=== PATIENT | male | born 1955 | race Caucasian/White ===

== ENCOUNTER 2016-10-30 19:49 | Emergency (ER) | payer BC ==
[~2016-10-30] VITALS: Ht 180.3 cm; Wt 93.1 kg
[2016-10-30 19:55] VITALS: TEMP 36.7; Ht 180.3 cm; Wt 93.1 kg
[2016-10-30] MEDS ORDERED: KETOROLAC TROMETHAMINE 30 MG/ML VIAL IV STA (20:25)
[2016-10-30] MEDS ORDERED: LABE1TAB28 PO (20:53)
[2016-10-30] MEDS ORDERED: HYDR25TA4 PO (20:53)
[2016-10-30] MEDS ORDERED: CHLO0.1222 PO (20:53)
[2016-10-30] MEDS ORDERED: LOSA1TAB PO (20:53)
[2016-10-30 20:56] LABS: BASO % 0.2 %; BASO ABS # 0.02 K/uL (0-0.2); COMPLETE YES; EOS % 3.5 %; HEMATOCRIT 40.2 % (42-52); IG% 0.3 %; LYMPH % 29.6 %; MEAN CELL VOLUME 91.8 fL (80-100); MEAN CORPUSCULAR HGB CONC 34.8 g/dl (32-36); MEAN PLATELET VOLUME 9.8 fL (7.4-10.4); MONO % 9.3 %; NEUT % 57.1 %; PLATELET COUNT 228 K/uL (130-400); RED BLOOD COUNT 4.38 M/uL (4.7-6.1); WHITE BLOOD COUNT 11.14 K/uL (4.8-10.8)
--- NOTE | 2016-10-30 21:11 | DIAGNOSTIC IMAGING REPORT ---
RIGHT TOE(S) MIN 2 VIEWS CLINICAL HISTORY: Right great toe redness and swelling COMPARISON: None. DISCUSSION: 3 views are provided for interpretation. No fractures or dislocations are visualized. There are minor degenerative changes. There are no destructive lesions to indicate acute osteomyelitis. IMPRESSION: 1. No acute fractures 2. No conventional radiographic evidence of osteomyelitis Electronically signed by: Marty Cordoba M.D. 10/30/2016 9:09 PM Dictated Date/Time: 10/30/2016 9:08 PM
[2016-10-30 21:13] LABS: CALCIUM 9.1 mg/dl (8.5-10.1); POTASSIUM 3.6 mmol/L (3.5-5.1); URIC ACID 5.5 mg/dl (2.6-7.2)
[2016-10-30] MEDS ORDERED: CEFAZOLIN SOD 1000MG/55 ML D5W IV STA (21:45)
--- NOTE | 2016-10-30 21:58 | EMERGENCY ROOM VISIT NOTE ---
ED Visit Note First contact with patient: 20:12 CHIEF COMPLAINT: Infection of the right great toe HISTORY OF PRESENT ILLNESS: This 61-year-old male patient presents to the emergency department via personal vehicle with his complaining of right toe pain and swelling for the past 5 days. The area has become red, warm, and very painful. The patient denies fever, chills, nausea, or loss of appetite. He reports history of similar swelling and pain in his big toe in the past, but states it was the lower joint that got inflamed and painful, and only lasted a few days that went away. He states he thinks this was gout, but he has never had a formal evaluation or diagnosis of gout. The swelling and pain of his toe now is different from previous times. Movement of the right big toe is somewhat decreased because of the pain. The patient's tetanus shot is up to date. REVIEW OF SYSTEMS: A review of systems was performed with positives and pertinent negatives listed in the history of present illness. All other systems were reviewed and are negative. ALLERGIES: No known allergies MEDICATIONS: Reviewed in chart PMH: Hypertension SOCIAL HISTORY: Lives at home with his . Denies tobacco, alcohol, recreational drug use. PHYSICAL EXAM: Vital Signs: Reviewed Nurse's notes, afebrile, vital signs stable. GENERAL: Pleasant and cooperative, in no acute distress, is non toxic in appearance, well-developed, well-nourished. SKIN: The right great toe is red , warm, very tender, and swollen along the DIP joint and plantar aspect of the toe. There is no lymphangitic streaking. There is no discharge. There is no fluctuance. There is mild induration. There is increased pain with flexion and extension of the DIP joint. There is no evidence of ingrown or infected toenail. HEART: Regular rate and rhythm without murmur, gallop, or rub. LUNGS: Clear to auscultation bilaterally without wheezes, rales, or rhonchi. NEURO: Alert and oriented to person, place, and time. Normal sensation to light and sharp touch. Capillary reflex less than 2 seconds. Peripheral pulses 2 + bilaterally. EMERGENCY DEPARTMENT COURSE: I examined the patient. Differential diagnosis includes cellulitis, ingrown toenail, gouty arthritis, osteomyelitis. X-ray of the right great toe was done, reviewed by myself and radiologist, no evidence of fracture or acute osteomyelitis. Labs were done and show mild leukocytosis, normal renal function. Given the leukocytosis and concern for possible developing infection, patient was given IV Ancef and PO Bactrim here in the emergency department and will be discharged home on Keflex and Bactrim for 10 days. Patient has been persistently hypertensive during his emergency department stay, he denies any associated symptoms of headache, blurry vision, dizziness, chest pain, palpitations, shortness of breath, and does report that he has had persistently elevated blood pressures "for a while." Due to the significant hypertension, an EKG was performed which shows sinus bradycardia no acute ischemic changes, no significant changes found when compared to previous EKG from 07/02/2015. A urine dip was done which showed trace proteinuria. The patient was encouraged to follow closely with his PCP in the next few days, and was given return precautions should his symptoms get worse, he verbalized understanding of all discharge instructions and plan for follow-up. Patient was discharged home in stable condition and ambulatory. Medication Reconciliation: I attest that I have personally reviewed the patient' s current medication list. Blood pressure screening: The patient was found to have an elevated blood pressure and was referred to their primary doctor for recheck and further treatment. I discussed the patient with Dr. Gray, who agrees with my assessment and plan. Current/Historical Medications Scheduled Cephalexin Monohydrate (Keflex), 500 MG PO QID Chlorhexidine Gluconate (Mouth (Peridex), 1 DOSE PO DAILY Hydrochlorothiazide (Hctz), 25 MG PO DAILY Labetalol (Normodyne), 200 MG PO BID Losartan Potassium (Cozaar), 25 MG PO DAILY Sulfamethoxazole-Trimethoprim (Bactrim Ds 800MG/160MG), 1 TAB PO BID Allergies Coded Allergies: No Known Drug Allergy (Verified Allergy, Unknown, `, 07/02/15) Vital Signs Date Time Temp Pulse Resp B/P (MAP) Pulse Ox O2 Delivery O2 Flow Rate FiO2 10/30/16 22:51 163/99 10/30/16 22:02 60 18 186/109 97 Room Air 10/30/16 19:55 36.7 67 18 173/114 96 Room Air Laboratory Results 10/30/16 20:45 Red Blood Count 4.38, Mean Corpuscular Volume 91.8, Mean Corpuscular Hemoglobin 32.0, Mean Corpuscular Hemoglobin Concent 34.8, Mean Platelet Volume 9.8, Neutrophils (%) (Auto) 57.1, Lymphocytes (%) (Auto) 29.6, Monocytes (%) (Auto) 9.3, Eosinophils (%) (Auto) 3.5, Basophils (%) (Auto) 0.2, Neutrophils # (Auto) 6.36, Lymphocytes # (Auto) 3.30, Monocytes # (Auto) 1.04, Eosinophils # (Auto) 0.39, Basophils # (Auto) 0.02 10/30/16 20:45 Test 10/30/16 20:45 White Blood Count 11.14 K/uL (4.8-10.8) Red Blood Count 4.38 M/uL (4.7-6.1) Hemoglobin 14.0 g/dL (14.0-18.0) Hematocrit 40.2 % (42-52) Mean Corpuscular Volume 91.8 fL (80-100) Mean Corpuscular Hemoglobin 32.0 pg (25-34) Mean Corpuscular Hemoglobin Concent 34.8 g/dl (32-36) Platelet Count 228 K/uL (130-400) Mean Platelet Volume 9.8 fL (7.4-10.4) Neutrophils (%) (Auto) 57.1 % Lymphocytes (%) (Auto) 29.6 % Monocytes (%) (Auto) 9.3 % Eosinophils (%) (Auto) 3.5 % Basophils (%) (Auto) 0.2 % Neutrophils # (Auto) 6.36 K/uL (1.4-6.5) Lymphocytes # (Auto) 3.30 K/uL (1.2-3.4) Monocytes # (Auto) 1.04 K/uL (0.11-0.59) Eosinophils # (Auto) 0.39 K/uL (0-0.5) Basophils # (Auto) 0.02 K/uL (0-0.2) RDW Standard Deviation 41.3 fL (36.4-46.3) RDW Coefficient of Variation 12.3 % (11.5-14.5) Immature Granulocyte % (Auto) 0.3 % Immature Granulocyte # (Auto) 0.03 K/uL (0.00-0.02) Anion Gap 7.0 mmol/L (3-11) Est Creatinine Clear Calc Drug Dose 92.7 ml/min Estimated GFR () 95.1 Estimated GFR (Non- 82.0 BUN/Creatinine Ratio 20.0 (10-20) Uric Acid 5.5 mg/dl (2.6-7.2) Calcium Level 9.1 mg/dl (8.5-10.1) Medications Administered Medications (Trade) Dose Ordered Sig/Fadi Route Start Time Stop Time Status Last Admin Dose Admin Ketorolac Tromethamine (Toradol Inj) 15 mg NOW STAT IV 10/30/16 20:25 10/30/16 20:28 DC 10/30/16 20:25 15 MG Cefazolin Sodium (Ancef 1000mg/55 ml D5W) 1,000 mg NOW STAT IV 10/30/16 21:45 10/30/16 21:46 DC 10/30/16 22:01 1,000 MG Trimethoprim/ Sulfamethoxazole (Septra Ds 800/ 160MG Tab) 1 tab NOW STAT PO 10/30/16 22:20 10/30/16 22:22 DC 10/30/16 22:39 1 TAB Trimethoprim/ Sulfamethoxazole (Sulfameth/ Trimeth Ds 800/ 160MG Home Pack) 1 homepack UD ONCE PO 10/30/16 22:30 10/30/16 22:31 DC 10/30/16 22:40 1 HOMEPACK Cephalexin Monohydrate (Keflex 500MG Home Pack) 1 homepack NOW ONCE PO 10/30/16 22:30 10/30/16 22:31 DC 10/30/16 22:40 1 HOMEPACK Departure Information Impression Primary Impression: Cellulitis of great toe, right Dispostion Home / Self-Care Condition GOOD Prescriptions Sulfamethoxazole-Trimethoprim (Bactrim Ds 800MG/160MG) 1 Tab Tab 1 TAB PO BID for 9 Days, #18 TAB Prov: Beverley Bucio CRNP 10/30/16 Cephalexin Monohydrate (KEFLEX) 500 Mg Cap 500 MG PO QID for 9 Days, #36 CAP Prov: Beverley Bucio CRNP 10/30/16 Referrals No Doctor, Assigned (PCP) Patient Instructions ED Arthritis Gout, ED Diet Gout, ED Infec Skin Cellulitis, [facility] Additional Instructions You were seen in the Emergency Department for cellulitis of your right big toe. You have been prescribed Keflex and Bactrim to be taken for the next 10 days. Both of these medications are antibiotics. Stop these medications and contact a medical provider if you were to develop any significant adverse side effects including: wheezing, shortness of breath, passing out, vomiting, or a diffuse rash. Always take antibiotics as directed and COMPLETE the ENTIRE course regardless of the improvement of your symptoms. Look for signs of worsening infection of the wound including: increased pain, swelling, foul discharge, streaking, or fevers/chills/feeling ill. If any of these are noticed you should return to the Emergency Department for further assessment and treatment. For pain control, you can use the following [id number] medicines (if >12 yo): - Extra strength (500mg/tab) Tylenol (acetaminophen) 1-2 tabs every 6-8 hours as needed. Do not exceed 6 tablets in a 24 hour period. Avoid taking more than 3 grams (3000 mg) of Tylenol per day. This includes any other sources of acetaminophen you may take on a regular basis. - Regular strength (200 mg/tab) Advil (ibuprofen) 2-3 tabs every 4-6 hours as needed. Do not exceed a dose of 2400 mg per day. Apply warm compresses to the area to help with pain and also to help improve the infection. Follow up with your PCP in 2 days for recheck, or sooner for worsening symptoms. You should also have your blood pressure rechecked, as this was very high in the emergency department today. Return to the emergency department if your symptoms worsen despite treatment course outlined above.
[2016-10-30] MEDS ORDERED: SULFAMETHOXAZOLE/TRIMETHOPRIM DS 800/160MG TAB PO STA (22:20)
[2016-10-30] MEDS ORDERED: CEPHALEXIN 500MG HOME PACK 1 EA BTL PO ONE (22:30)
[2016-10-30] MEDS ORDERED: SEPTRA DS HOME PACK 1 EA VIAL PO ONE (22:30)
[2016-10-30] MEDS ORDERED: CEPH500C2 PO (23:24)
[2016-10-30] MEDS ORDERED: SULF800T23 PO (23:24)
[2016-10-30 23:28] VITALS: BP 163/99; PULSE 65; O2SAT 97
== END 2016-10-30 23:37 | disposition home or self-care (01) ==
LOC: C.EDB 19:50
DX: L03.031 Cellulitis of right toe (principal); I10 Essential (primary) hypertension; R00.1 Bradycardia, unspecified